=== PATIENT | male | born 1970 | race African-American/Black ===

== ENCOUNTER 2016-08-20 07:39 | Observation (INO) | payer BC ==
--- NOTE | ~2016-08-20 | HP ---
History And Physical [facility] [address] [place]. [address] NAME: JEANIE GARRISON : 66 STATUS : ADM IN [facility]#: [id number] AGE: 45 ADM/REG DATE : 08/20/16 MR#: [id number] REPORT SERV DATE: 08/20/16 DICTATED BY: SHIRA BENTON DATE: 08/20/16 REPORT STATUS : Draft TRANSCRIBED BY: MODL DATE: 08/20/16 DATE OF ADMISSION: 08/20/2016 CHIEF COMPLAINT: Shortness of breath. HISTORY OF PRESENT ILLNESS: Mr. Garrison is a very pleasant 45-year-old male with ESRD. He dialyzes Tuesday, Tuesday, Tuesday at [facility] through a left upper arm AV fistula. History significant for hypertension and recurrent right pleural effusion, status post VATS with pleurodesis in 04/2016. After dialysis 08/18/2016 he developed a cough productive of green sputum. He has had a subjective fever and came to the emergency room here today at [facility] rather than his usual outpatient dialysis. Here he was found to have a chest x-ray with a minimal right basal infiltrate and a BNP of approximately 5000. Potassium was 5.7. UDS showed amphetamine, cocaine, and THC. He admits to smoking cocaine approximately once a week the most recent of which was on 08/16/2016. He does smoke cigarettes daily. PAST MEDICAL HISTORY: 1. ESRD Tuesday, Tuesday, Tuesday, left upper arm AV fistula, [facility]. 2. Hypertension. 3. COPD with ongoing tobacco abuse. 4. 02/2016 echo EF 40% with RVSP 48 mmHg. 5. Paroxysmal atrial fibrillation. 6. Thoracic aortic aneurysm repair in 2009 at [facility] in [place], [place]. 7. LVH by echo. 8. Hyperlipidemia. 9. Recurrent right pleural effusion, status post VATS and pleurodesis, 04/2016. MEDICATIONS: On admission, aspirin, Sensipar 60 mg on dialysis days, Plavix, Imdur 30 mg daily, losartan 50 mg daily, Zantac, and Desyrel. FAMILY HISTORY: Noncontributory to current admission. SOCIAL HISTORY: Positive for cocaine and tobacco use. REVIEW OF SYSTEMS: Please see HPI for pertinent details. PHYSICAL EXAMINATION: VITAL SIGNS: Temperature 97.6, pulse 91, respirations 22, blood pressure 188/119. His dry weight from the clinic is unknown, but he weighs 79.3 kg prior to HD today. He has a 98% saturation on room air. GENERAL: Awake, alert, oriented, cooperative with the exam. Very pleasant middle-aged male, who is in no distress. HEENT: Sclerae without icterus. Conjunctivae not injected. Oropharynx is clear. LUNGS: He has diffuse bilateral rhonchi worse on the right. No dyspnea or tachypnea on History And Physical [address] [place]. [address] NAME: JEANIE GARRISON : 66 STATUS : ADM IN [facility]#: [id number] AGE: 45 ADM/REG DATE : 08/20/16 MR#: [id number] REPORT SERV DATE: 08/20/16 DICTATED BY: SHIRA BENTON DATE: 08/20/16 REPORT STATUS : Draft TRANSCRIBED BY: MODJudie DATE: 08/20/16 room air. HEART: Regular rate and rhythm with audible S4. ABDOMEN: Soft, nontender, nondistended. EXTREMITIES: Without edema. SKIN: Without rash. NEURO: Grossly nonfocal. Left upper arm AV fistula blood flow 400 mL/minute. LABORATORY DATA: Sodium 139, potassium 5.7, BUN 42, creatinine 9.8, calcium 8.6, albumin 3.1. White count 9200, hemoglobin 12.9, platelets 224,000. BNP 4889. Chest x-ray with right basal infiltrate. ASSESSMENT AND PLAN: Mr. Garrison has end-stage renal disease, presents with hypertension, hyperkalemia, dyspnea, elevated BNP, hypoalbuminemia, positive drug screen, and productive cough. More than likely his dyspnea is multifactorial related to combination of bronchitis, chronic tobacco abuse, and volume overload. A 23-hour observation, admission to the Nephrology Service with dialysis and ultrafiltration as tolerated today. Empiric antibiotics and nebulizers. Hopefully can transition to the outpatient setting tomorrow if he is clinically improved with oral antibiotics? JOSHUA/NIYA Shira Benton M.D. / [id number] CC: Shira Benton M.D.
[~2016-08-20 07:39] MED LIST: *UNABLE3; ASAB PO; BENICAR40 PO; BREO ELLIPTA 21 EACH INH; CARD120 PO; CARDCD120 PO; CARDCD180 PO; CAT1 PO; CAT2 PO; COREG25 PO; COREG6 PO; COZ50 PO; CRESTOR20 MG PO; HALF81 PO; HYDRALAZINE100 MG PO; IMDUR30 PO; L40 PO; LEVAQUIN5T PO; LIPITOR20 PO; NEPHRO PO; NEPHRO-VITE PO; NORCO1 TA1 PO; NORCO1 TA2 PO; NORV10 PO; PCET PO; PHOSLO PO; PLAVIX PO; PRIN20 PO; PROVENTSOL INH; RANITIDINE300 MG PO; SENSIPAR30 M1 PO; SEVE800T PO; SPIRIVA RESPIMAT INH; TRAZ50 PO; VANCOMYCIN IV; ZANTAC 150 PO; ZANTAC300 MG PO; ZINC220C PO
[2016-08-20 08:00] LABS: BASOPHILS 0.3 %; BASOPHILS ABSOLUTE 0.03 10/3/uL (0.0-0.16); EOSINOPHILS 0 %; HEMATOCRIT 39.9 % (40.0-51.0); HEMOGLOBIN 12.9 g/dL (13.6-17.8); IMMATURE GRANULOCYTES 0.2 %; IMMATURE GRANULOCYTES ABSOLUTE 0.02 10/3/uL (0.0-0.11); LYMPHOCYTES 9.8 %; MANUAL DIFF NO %; MEAN CORPUS HGB CONC 32.3 g/dL (32.0-36.0); MEAN CORPUSCULAR HEMOGLOB 31.9 pg (26.0-34.0); MEAN CORPUSCULAR VOLUME 98.8 fL (80-100); MONOCYTES 7.7 %; MONOCYTES ABSOLUTE 0.71 10/3/uL (0.21-1.20); NEUTROPHILS ABSOLUTE 7.51 10/3/uL (2.02-8.40); PLATELET COUNT 224 10/3/uL (150-400); RBC DISTRIBUTION WIDTH 15.2 % (12.0-16.0); RED CELL COUNT 4.04 10/6/uL (4.7-6.1); WHITE BLOOD CELLS 9.2 10/3/uL (4.5-10.5)
[2016-08-20 08:08] LABS: INTERNATIONAL NORMAL RATI 1.3 UNITS (-); PARTIAL THROMBO TIME 33.7 SEC (22.5-37.2); PROTIME (NOT ORD) 16.1 SEC (12.0-14.5)
[2016-08-20 08:09] LABS: INFLUENZA A SCREEN NEGATIVE (NEGATIVE); INFLUENZA B SCREEN NEGATIVE (NEGATIVE)
[2016-08-20 08:18] LABS: CALCIUM, SERUM 8.6 MG/DL (8.5-10.4); CHLORIDE, SERUM 102 MMOL/L (96-112); CO2 (CARBON DIOXIDE) 26 MMOL/L (24-34); CREATININE 9.85 MG/DL (0.70-1.30); GFR AFRICAN AMERICAN 7 ML/MIN (>=60); GFR NON AFRICAN AMERICAN 6 ML/MIN (>=60); SGOT(AST) 18 U/L (5-40); SGPT(ALT) 18 U/L (5-65); SODIUM, SERUM 139 MMOL/L (135-148); TOTAL BILIRUBIN 0.6 MG/DL (0-1.2); TOTAL PROTEIN 7.2 G/DL (6.0-8.5)
[2016-08-20 08:19] LABS: A/G RATIO 0.8 (0.7-1.9); ACETAMINOPHEN LEVEL (TYLENOL) < 2.0 MCG/ML (10.0-20.0); ALBUMIN 3.1 G/DL (3.5-5.0); ALCOHOL < 10 MG/DL (0); ALKALINE PHOSPHATASE 153 U/L (45-117); BUN (BLOOD UREA NITROGEN) 42 MG/DL (6-23); GLOBULIN 4.1 G/DL (2.5-4.1); GLUCOSE, SERUM 91 MG/DL (60-99); POTASSIUM, SERUM 5.7 MMOL/L (3.5-5.3); SALICYLATE < 1.7 MG/DL (-); TROPONIN I 0.15 NG/ML (<0.05)
[2016-08-20 08:53] LABS: ASCORBIC ACID (UR NOT ORDER) NEG (NEG); BILIRUBIN, URINE NEGATIVE (NEG); KETONE, URINE NEGATIVE (NEG); LEUKOCYTE ESTERASE(NOT OR TRACE (NEG); NITRITE (URINE) NEG (NEG); WBC (NOT ORDERED) (RFLEX) 4 (0-5)
[2016-08-20 09:02] LABS: AMPHETAMINES (NOT ORD) POS (NEG); BENZODIAZEPINES (NOT ORD) NEG (NEG); CANNABINOIDS (THC) POS (NEG); COCAINE (NOT ORDERED) POS (NEG); OPIATES NEG (NEG); PHENCYCLIDINE(PCP) NEG (NEG)
[2016-08-20 09:03] LABS: BARBITURATES (NOT ORDERED NEG (NEG); TRICYCLICS NEG (NEG)
[2016-08-20] MEDS ORDERED: RANITIDINE300 MG PO (09:18)
[2016-08-20] MEDS ORDERED: COZ50 PO (09:19)
[2016-08-20] MEDS ORDERED: PLAVIX PO (09:19)
[2016-08-20] MEDS ORDERED: IMDUR30 PO (09:19)
[2016-08-20] MEDS ORDERED: TRAZ50 PO (09:19)
[2016-08-20] MEDS ORDERED: HALF81 PO (09:20)
[2016-08-20] MEDS ORDERED: SENSIPAR60 MG PO (09:20)
[2016-08-20 16:12] LABS: PROCALCITONIN 1.04 ng/mL (<0.5)
[2016-08-21 06:28] LABS: BASOPHILS 0.9 %; BASOPHILS ABSOLUTE 0.05 10/3/uL (0.0-0.16); EOSINOPHILS 0.2 %; EOSINOPHILS ABSOLUTE 0.01 10/3/uL (0.0-0.53); HEMATOCRIT 37.5 % (40.0-51.0); HEMOGLOBIN 12.3 g/dL (13.6-17.8); IMMATURE GRANULOCYTES 0.2 %; IMMATURE GRANULOCYTES ABSOLUTE 0.01 10/3/uL (0.0-0.11); LYMPHOCYTES 14.6 %; LYMPHOCYTES ABSOLUTE 0.83 10/3/uL (0.67-4.30); MEAN CORPUS HGB CONC 32.8 g/dL (32.0-36.0); MEAN CORPUSCULAR HEMOGLOB 32.3 pg (26.0-34.0); MEAN CORPUSCULAR VOLUME 98.4 fL (80-100); MEAN PLATELET VOLUME 10.3 fL (9.2-13.0); MONOCYTES 10.9 %; MONOCYTES ABSOLUTE 0.62 10/3/uL (0.21-1.20); NEUTROPHILS 73.2 %; NEUTROPHILS ABSOLUTE 4.17 10/3/uL (2.02-8.40); PLATELET COUNT 215 10/3/uL (150-400); RED CELL COUNT 3.81 10/6/uL (4.7-6.1); WHITE BLOOD CELLS 5.7 10/3/uL (4.5-10.5)
[2016-08-21 06:29] LABS: MANUAL DIFF NO %
[2016-08-21 06:42] LABS: ALBUMIN 2.7 G/DL (3.5-5.0); BUN (BLOOD UREA NITROGEN) 42 MG/DL (6-23); CALCIUM, SERUM 7.8 MG/DL (8.5-10.4); CHLORIDE, SERUM 102 MMOL/L (96-112); CO2 (CARBON DIOXIDE) 25 MMOL/L (24-34); CREATININE 8.94 MG/DL (0.70-1.30); GFR AFRICAN AMERICAN 7 ML/MIN (>=60); GFR NON AFRICAN AMERICAN 6 ML/MIN (>=60); GLUCOSE, SERUM 124 MG/DL (60-99); PHOSPHORUS, SERUM 5.5 MG/DL (2.5-4.5); POTASSIUM, SERUM 4.2 MMOL/L (3.5-5.3); SODIUM, SERUM 141 MMOL/L (135-148)
[2016-08-21] MEDS ORDERED: LEVAQUIN750 MG PO (09:40)
[2016-11-16] MEDS ORDERED: CAT2 PO (16:09)
[2016-11-16] MEDS ORDERED: PHOSLO PO (16:10)
[2016-11-16] MEDS ORDERED: FLOVENT110 INH (16:11)
[2016-11-16] MEDS ORDERED: SENSIPAR60 MG PO (16:12)
[2016-11-16] MEDS ORDERED: COREG6 PO (16:13)
== END 2016-08-21 11:42 | disposition home or self-care (01) ==
LOC: ER 07:39 → 2SO 10:15
PROVIDERS: Emergency Medicine; Internal Medicine Nephrology
DX: I12.0 Hypertensive chronic kidney disease with stage 5 chronic kidney disease or end stage renal disease (principal); N18.6 End stage renal disease; J44.9 Chronic obstructive pulmonary disease, unspecified; Z99.2 Dependence on renal dialysis; F17.210 Nicotine dependence, cigarettes, uncomplicated; I48.0 Paroxysmal atrial fibrillation; E78.5 Hyperlipidemia, unspecified; J90 Pleural effusion, not elsewhere classified; Z79.82 Long term (current) use of aspirin; F14.90 Cocaine use, unspecified, uncomplicated; Z88.8 Allergy status to other drugs, medicaments and biological substances; I25.10 Atherosclerotic heart disease of native coronary artery without angina pectoris; Z79.899 Other long term (current) drug therapy; Z79.02 Long term (current) use of antithrombotics/antiplatelets
CPT/HCPCS: 71010; 80053; 80069; 80305; 80307; 81001; 83690; 83735; 83880; 84145; 84484; 85025; 85610; 85730; 87040; 87804; 93005; 94640; 99285; A9270-GY; G0257; G0378; J1956; P9047

== ENCOUNTER 2016-09-13 09:59 | Emergency (ER) | payer BC ==
[2016-09-13 08:39] LABS: BASOPHILS 0.4 %; BASOPHILS ABSOLUTE 0.02 10/3/uL (0.0-0.16); EOSINOPHILS 1.9 %; ER CBC TAT 0 Hrs 07 Mins; HEMATOCRIT 35.5 % (40.0-51.0); HEMOGLOBIN 11.6 g/dL (13.6-17.8); IMMATURE GRANULOCYTES 0.2 %; IMMATURE GRANULOCYTES ABSOLUTE 0.01 10/3/uL (0.0-0.11); LYMPHOCYTES 30.1 %; LYMPHOCYTES ABSOLUTE 1.62 10/3/uL (0.67-4.30); MANUAL DIFF NO %; MEAN CORPUS HGB CONC 32.7 g/dL (32.0-36.0); MEAN CORPUSCULAR HEMOGLOB 30.7 pg (26.0-34.0); MEAN CORPUSCULAR VOLUME 93.9 fL (80-100); MEAN PLATELET VOLUME 10.6 fL (9.2-13.0); MONOCYTES 10.8 %; MONOCYTES ABSOLUTE 0.58 10/3/uL (0.21-1.20); NEUTROPHILS 56.6 %; NEUTROPHILS ABSOLUTE 3.06 10/3/uL (2.02-8.40); PLATELET COUNT 192 10/3/uL (150-400); RBC DISTRIBUTION WIDTH 14.2 % (12.0-16.0); RED CELL COUNT 3.78 10/6/uL (4.7-6.1); WHITE BLOOD CELLS 5.4 10/3/uL (4.5-10.5)
[2016-09-13 08:54] LABS: A/G RATIO 0.6 (0.7-1.9); ALBUMIN 2.9 G/DL (3.5-5.0); ALKALINE PHOSPHATASE 152 U/L (45-117); BUN (BLOOD UREA NITROGEN) 39 MG/DL (6-23); CALCIUM, SERUM 8.7 MG/DL (8.5-10.4); CHLORIDE, SERUM 101 MMOL/L (96-112); CO2 (CARBON DIOXIDE) 24 MMOL/L (24-34); GLOBULIN 4.5 G/DL (2.5-4.1); POTASSIUM, SERUM 4.3 MMOL/L (3.5-5.3); SGPT(ALT) 11 U/L (5-65); SODIUM, SERUM 138 MMOL/L (135-148); TOTAL BILIRUBIN 0.6 MG/DL (0-1.2); TOTAL PROTEIN 7.4 G/DL (6.0-8.5)
[2016-09-13 08:59] LABS: GFR AFRICAN AMERICAN 6 ML/MIN (>=60); GFR NON AFRICAN AMERICAN 5 ML/MIN (>=60); GLUCOSE, SERUM 93 MG/DL (60-99)
[2016-09-13 09:00] LABS: SGOT(AST) 17 U/L (5-40)
[~2016-09-13 09:59] MED LIST changes: +LEVAQUIN750 MG PO; +SENSIPAR60 MG PO
[2016-09-13 11:13] LABS: ASCORBIC ACID (UR NOT ORDER) NEG (NEG); BILIRUBIN, URINE NEGATIVE (NEG); ER URINALYSIS TAT 0 Hrs 10 Mins; KETONE, URINE NEGATIVE (NEG); LEUKOCYTE ESTERASE(NOT OR TRACE (NEG); NITRITE (URINE) NEG (NEG); WBC (NOT ORDERED) (RFLEX) 8 (0-5)
[2016-11-16] MEDS ORDERED: CAT2 PO (16:09)
[2016-11-16] MEDS ORDERED: PHOSLO PO (16:10)
[2016-11-16] MEDS ORDERED: FLOVENT110 INH (16:11)
[2016-11-16] MEDS ORDERED: SENSIPAR60 MG PO (16:12)
[2016-11-16] MEDS ORDERED: COREG6 PO (16:13)
== END 2016-09-13 17:16 | disposition home or self-care (01) ==
LOC: ER 09:59
PROVIDERS: Physician Assistant
DX: R10.32 Left lower quadrant pain (principal); J44.9 Chronic obstructive pulmonary disease, unspecified; I48.91 Unspecified atrial fibrillation; I12.9 Hypertensive chronic kidney disease with stage 1 through stage 4 chronic kidney disease, or unspecified chronic kidney disease; N18.9 Chronic kidney disease, unspecified; F17.200 Nicotine dependence, unspecified, uncomplicated; Z88.8 Allergy status to other drugs, medicaments and biological substances; Z79.82 Long term (current) use of aspirin; Z79.899 Other long term (current) drug therapy
CPT/HCPCS: 74176; 80053; 81001; 83605; 85025; 96374; 96375; 99284; J1170; J1885; J2405

== ENCOUNTER 2016-11-16 16:18 | Emergency (ER) | payer BC ==
[2016-11-16 12:42] LABS: BASOPHILS 0.5 %; BASOPHILS ABSOLUTE 0.03 10/3/uL (0.0-0.16); EOSINOPHILS ABSOLUTE 0.13 10/3/uL (0.0-0.53); ER CBC TAT 0 Hrs 05 Mins; HEMATOCRIT 35.7 % (40.0-51.0); HEMOGLOBIN 11.8 g/dL (13.6-17.8); IMMATURE GRANULOCYTES 0.2 %; IMMATURE GRANULOCYTES ABSOLUTE 0.01 10/3/uL (0.0-0.11); LYMPHOCYTES 18.4 %; LYMPHOCYTES ABSOLUTE 1.19 10/3/uL (0.67-4.30); MANUAL DIFF NO %; MEAN CORPUS HGB CONC 33.1 g/dL (32.0-36.0); MEAN CORPUSCULAR VOLUME 93.7 fL (80-100); MEAN PLATELET VOLUME 9.6 fL (9.2-13.0); MONOCYTES 5.9 %; MONOCYTES ABSOLUTE 0.38 10/3/uL (0.21-1.20); NEUTROPHILS ABSOLUTE 4.73 10/3/uL (2.02-8.40); PLATELET COUNT 147 10/3/uL (150-400); RED CELL COUNT 3.81 10/6/uL (4.7-6.1); WHITE BLOOD CELLS 6.5 10/3/uL (4.5-10.5)
[2016-11-16 12:52] LABS: INTERNATIONAL NORMAL RATI 1.1 UNITS (-); PARTIAL THROMBO TIME 30.7 SEC (22.5-37.2); PROTIME (NOT ORD) 14.3 SEC (12.0-14.5)
[2016-11-16 13:02] LABS: CALCIUM, SERUM 8.7 MG/DL (8.5-10.4); CHLORIDE, SERUM 101 MMOL/L (96-112); CO2 (CARBON DIOXIDE) 25 MMOL/L (24-34); POTASSIUM, SERUM 4.5 MMOL/L (3.5-5.3); SODIUM, SERUM 136 MMOL/L (135-148)
[2016-11-16 13:03] LABS: BUN (BLOOD UREA NITROGEN) 51 MG/DL (6-23); CHEST PAIN PROFILE TAT 0 Hrs 26 Mins; GFR AFRICAN AMERICAN 4 ML/MIN (>=60); GFR NON AFRICAN AMERICAN 4 ML/MIN (>=60); GLUCOSE, SERUM 116 MG/DL (60-99); TROPONIN I 0.12 NG/ML (<0.05)
[~2016-11-16 16:18] MED LIST changes: +FLOVENT110 INH
== END 2016-11-16 16:20 | disposition home or self-care (01) ==
LOC: ER 16:18
PROVIDERS: Emergency Medicine
DX: I13.0 Hypertensive heart and chronic kidney disease with heart failure and stage 1 through stage 4 chronic kidney disease, or unspecified chronic kidney disease (principal); N18.9 Chronic kidney disease, unspecified; I50.9 Heart failure, unspecified; R79.89 Other specified abnormal findings of blood chemistry; J44.9 Chronic obstructive pulmonary disease, unspecified; I48.0 Paroxysmal atrial fibrillation; K21.9 Gastro-esophageal reflux disease without esophagitis; F32.9 Major depressive disorder, single episode, unspecified; F41.9 Anxiety disorder, unspecified; Z99.2 Dependence on renal dialysis; F17.200 Nicotine dependence, unspecified, uncomplicated; Z95.1 Presence of aortocoronary bypass graft; Z88.8 Allergy status to other drugs, medicaments and biological substances; Z79.82 Long term (current) use of aspirin; Z79.899 Other long term (current) drug therapy
CPT/HCPCS: 71020; 80048; 83735; 83880; 84484; 85025; 85610; 85730; 93005; 99285; A9270-GY